=== PATIENT | female | born 1970 | race Caucasian/White ===

== ENCOUNTER 2022-01-12 12:15 | Inpatient (IN) | payer MEDICARE, MEDICAID ==
[~2022-01-12] VITALS: Ht 162.6 cm; Wt 75.8 kg
[2022-01-12] MEDS ORDERED: cefTRIAXone 1GM/50ML D5W 50 ML IV ONE (13:30)
[2022-01-12 13:57] LABS: Urine Bacteria MOD /hpf (None Seen); Urine Blood 1+ /uL (Negative); Urine Budding Yeast MODERATE /hpf (None Seen); Urine Mucus FEW (None Seen); Urine Specific Gravity 1.019 (1.001-1.035); Urine WBC 160 /hpf (0 - 5); Urine WBC Clumps PRESENT /hpf (None Seen)
[2022-01-12 14:02] LABS: Hematocrit 26.5 % (36.0-46.0); Hemoglobin 8.7 g/dL (12.2-16.2); Mean Corpuscular Hemoglobin 28.2 pg (28.0-32.0); Mean Corpuscular Hgb Conc. 32.9 g/dL (32.0-36.0); Mean Corpuscular Volume 85.6 fL (80.0-100.0); Red Blood Cells 3.09 10^6/uL (4.0-5.20); Red Cell Distribution Width 16.2 % (11.8-14.3); White Blood Cell 13.5 10^3/uL (4.4-10.8)
[2022-01-12 14:07] LABS: Band Neutrophils % (manual) 0; Basophils % (manual) 0 (0.0-2.0); Blast Cells 0; Metamyelocytes % 0; Myelocytes % 0; Promyelocytes % 0; Reactive Lymphocytes 0
[2022-01-12 15:03] LABS: Eosinophils % (manual) 1 (0-7); Lymphocytes % (manual) 3 (10.0-50.0); Monocytes % (manual) 4 (0-12)
[2022-01-12 15:09] LABS: Albumin 2.1 g/dL (3.4-5.0); Calcium 8.2 mg/dL (8.5-10.1); Magnesium 2.2 mg/dL (1.6-2.6); Potassium 3.7 mmol/L (3.5-5.1)
[2022-01-12 15:12] LABS: BUN/Creatinine Ratio 3.1
[2022-01-12 15:17] LABS: Bilirubin, Total 0.5 mg/dL (0.2-1.0); Total Protein 6.5 g/dL (6.4-8.2)
[2022-01-12] MEDS ORDERED: ONDANSETRON HCL 4 MG/2 ML VIAL IM ONE (15:30)
[2022-01-12] MEDS ORDERED: DEXTROSE (50%) 50ML SYRG IV PRN (16:15)
[2022-01-12] MEDS ORDERED: NITROGLYCERIN 0.4 MG SL TAB SL PRN (16:15)
[2022-01-12] MEDS ORDERED: DOCUSATE SOD 100 MG CAP PO PRN (16:15)
[2022-01-12] MEDS: InsuLIN REG 1unit/0.01ml Soln (100units/ml) SC SCH ×2 (17:00→23:14)
[2022-01-12] MEDS: ACCU-CHEK COMFORT CURVE STRIP VI SCH ×2 (17:00→23:14)
[2022-01-12] MEDS: PIPERACILLIN-TAZOB 2.25GM 50 ML IV SCH (23:13)
[2022-01-13] MEDS: ONDANSETRON HCL 4 MG/2 ML VIAL IV PRN (01:13)
[2022-01-13 02:48] VITALS: BP 155/112
[2022-01-13 03:44] VITALS: BP 155/112
[2022-01-13] MEDS ORDERED: LACT10PA2 PO (04:05)
[2022-01-13] MEDS ORDERED: FER325T PO (04:10)
[2022-01-13] MEDS ORDERED: ATOR40TA52 PO (04:10)
[2022-01-13] MEDS ORDERED: ASPI1TAB20 PO (04:11)
[2022-01-13] MEDS ORDERED: HYDR-4902 PO (04:12)
[2022-01-13] MEDS ORDERED: NITR0.4S29 SL (04:14)
[2022-01-13] MEDS ORDERED: RANO500T2 PO (04:14)
[2022-01-13] MEDS ORDERED: PANT1INJ3 IV (04:16)
[2022-01-13] MEDS ORDERED: SUCR1TAB22 PO (04:16)
[2022-01-13] MEDS ORDERED: CHOL20007 PO (04:38)
[2022-01-13] MEDS ORDERED: SODIUM CHL 0.9% 1000 ML BAG XX ONE (05:30)
[2022-01-13] MEDS: PIPERACILLIN-TAZOB 2.25GM 50 ML IV SCH ×3 (06:00→21:22)
[2022-01-13 06:11] LABS: Basophils # (auto) 0.1 10 ^3/uL (0-0.2); Hematocrit 22.3 % (36.0-46.0); Monocytes # (auto) 0.9 10 ^3/uL (0-1.3); Red Blood Cells 2.62 10^6/uL (4.0-5.20)
[2022-01-13 06:15] LABS: Basophils % (auto) 0.5 % (0.0-2.0); Eosinophils # (auto) 0.3 10 ^3/uL (0-0.8); Eosinophils % (auto) 1.9 % (0.0-7.0); Hemoglobin 7.6 g/dL (12.2-16.2); Lymphocytes # (auto) 0.4 10 ^3/uL (0.4-5.4); Lymphocytes % (auto) 3.1 % (10.0-50.0); Mean Corpuscular Hgb Conc. 34.1 g/dL (32.0-36.0); Monocytes % (auto) 6.7 % (0.0-12.0); Neutrophils # (auto) 12.3 10 ^3/uL (1.6-8.6); Neutrophils % (auto) 87.8 % (37.0-80.0); Nucleated Red Blood Cells % 0.1 %; Red Cell Distribution Width 15.9 % (11.8-14.3); White Blood Cell 14.1 10^3/uL (4.4-10.8)
[2022-01-13 06:23] LABS: Albumin 1.9 g/dL (3.4-5.0); Calcium 7.6 mg/dL (8.5-10.1); Potassium 3.6 mmol/L (3.5-5.1)
[2022-01-13 06:28] LABS: Bilirubin, Total 0.5 mg/dL (0.2-1.0); Phosphorus 2.7 mg/dL (2.5-4.90)
[2022-01-13] MEDS: ACCU-CHEK COMFORT CURVE STRIP VI SCH ×4 (07:53→21:07)
[2022-01-13] MEDS: InsuLIN REG 1unit/0.01ml Soln (100units/ml) SC SCH ×4 (07:55→21:08)
[2022-01-13] MEDS: FUROSEMIDE 100 MG/10ML VIAL IV SCH ×2 (07:56→18:06)
[2022-01-13 09:00] VITALS: BP 142/81
[2022-01-13] MEDS: METOCLOPRAMIDE HCL 5MG/ml INJ 2ml VIAL IV PRN ×2 (09:15→18:07)
[2022-01-13] MEDS: ENOXAPARIN SOD 30 MG/0.3 ML SYRINGE SC SCH (09:28)
[2022-01-13] MEDS ORDERED: VANCOMYCIN PER PHARMACY 0 MG IV SCH (10:45)
[2022-01-13] MEDS ORDERED: LACTULOSE 20Gm/30ML SOLN PO ONE (11:00)
[2022-01-13] MEDS: PANTOPRAZOLE 40 MG TAB PO SCH ×2 (11:55→21:23)
[2022-01-13] MEDS: SUCRALFATE 1 GM/10 ML ORAL SUSP PO SCH ×4 (11:55→21:23)
[2022-01-13] MEDS ORDERED: VANCOMYCIN 1GM/250ML 250 ML IV ONE (12:30)
[2022-01-13 13:00] VITALS: BP 141/82
[2022-01-13 17:00] VITALS: BP 148/78
[2022-01-13] MEDS ORDERED: EPOETIN ALFA-EPBX 10,000 UNIT/1ML VIAL SC ONE (21:00)
[2022-01-13 23:52] VITALS: BP 147/72
[2022-01-14 05:00] VITALS: BP 142/80
[2022-01-14] MEDS: PIPERACILLIN-TAZOB 2.25GM 50 ML IV SCH ×3 (05:36→21:00)
[2022-01-14] MEDS: FUROSEMIDE 100 MG/10ML VIAL IV SCH ×2 (05:37→17:36)
[2022-01-14] MEDS: ACCU-CHEK COMFORT CURVE STRIP VI SCH ×4 (06:19→21:01)
[2022-01-14] MEDS: SUCRALFATE 1 GM/10 ML ORAL SUSP PO SCH ×4 (06:20→21:02)
[2022-01-14] MEDS: InsuLIN REG 1unit/0.01ml Soln (100units/ml) SC SCH ×4 (06:20→21:02)
[2022-01-14] MEDS: PANTOPRAZOLE 40 MG TAB PO SCH ×2 (08:40→21:01)
[2022-01-14] MEDS: ENOXAPARIN SOD 30 MG/0.3 ML SYRINGE SC SCH (08:40)
[2022-01-14 09:00] VITALS: BP 147/75
[2022-01-14] MEDS ORDERED: MORPHINE SULFATE INJECTION 2 MG/ML SYRG IV PRN ×2 (09:45→10:15)
[2022-01-14] MEDS: METOCLOPRAMIDE HCL 5MG/ml INJ 2ml VIAL IV PRN (10:22)
[2022-01-14 13:00] VITALS: BP 149/81
[2022-01-14] MEDS ORDERED: POLYETHYLENE GLYCOL 17 GM PWDR PO ONE (15:15)
[2022-01-14] MEDS: MORPHINE SULFATE INJECTION 2 MG/ML SYRG IV PRN ×2 (15:20→21:04)
[2022-01-14] MEDS ORDERED: FLUCONAZOLE 200MG/100ML 100 ML IV ONE (15:30)
[2022-01-14 17:00] VITALS: BP 140/81
[2022-01-14] MEDS ORDERED: VANCOMYCIN 500 MG in SODIUM CHL 0.9% 100 ML IV ONE (17:00)
[2022-01-14] MEDS: METOCLOPRAMIDE HCL 5MG/ml INJ 2ml VIAL IV SCH (17:22)
[2022-01-14 22:00] VITALS: BP 152/74
[2022-01-15] MEDS: METOCLOPRAMIDE HCL 5MG/ml INJ 2ml VIAL IV SCH ×4 (00:37→18:00)
[2022-01-15 05:00] VITALS: BP 128/71
[2022-01-15] MEDS: MORPHINE SULFATE INJECTION 2 MG/ML SYRG IV PRN ×6 (05:21→20:37)
[2022-01-15 06:03] LABS: Basophils # (auto) 0.1 10 ^3/uL (0-0.2); Basophils % (auto) 0.6 % (0.0-2.0); Monocytes # (auto) 1.2 10 ^3/uL (0-1.3)
[2022-01-15 06:05] LABS: Eosinophils # (auto) 0.8 10 ^3/uL (0-0.8); Eosinophils % (auto) 4.6 % (0.0-7.0); Hematocrit 23.5 % (36.0-46.0); Hemoglobin 7.8 g/dL (12.2-16.2); Lymphocytes # (auto) 0.9 10 ^3/uL (0.4-5.4); Lymphocytes % (auto) 5.3 % (10.0-50.0); Mean Corpuscular Hemoglobin 28.5 pg (28.0-32.0); Mean Corpuscular Hgb Conc. 33.3 g/dL (32.0-36.0); Mean Corpuscular Volume 85.8 fL (80.0-100.0); Monocytes % (auto) 7.3 % (0.0-12.0); Neutrophils # (auto) 13.6 10 ^3/uL (1.6-8.6); Neutrophils % (auto) 82.2 % (37.0-80.0); Red Blood Cells 2.74 10^6/uL (4.0-5.20); Red Cell Distribution Width 15.8 % (11.8-14.3); White Blood Cell 16.6 10^3/uL (4.4-10.8)
[2022-01-15] MEDS: ACCU-CHEK COMFORT CURVE STRIP VI SCH ×4 (06:17→22:00)
[2022-01-15] MEDS: InsuLIN REG 1unit/0.01ml Soln (100units/ml) SC SCH ×4 (06:18→22:00)
[2022-01-15] MEDS: SUCRALFATE 1 GM/10 ML ORAL SUSP PO SCH ×4 (06:50→21:36)
[2022-01-15] MEDS: PIPERACILLIN-TAZOB 2.25GM 50 ML IV SCH ×3 (06:50→21:38)
[2022-01-15] MEDS: FUROSEMIDE 100 MG/10ML VIAL IV SCH ×2 (06:50→18:34)
[2022-01-15] MEDS ORDERED: SODIUM CHL 0.9% 1000 ML BAG XX ONE (07:00)
[2022-01-15] MEDS: FLUCONAZOLE 200MG/100ML 100 ML IV SCH (09:23)
[2022-01-15] MEDS: POLYETHYLENE GLYCOL 17 GM PWDR PO SCH (09:23)
[2022-01-15] MEDS: ENOXAPARIN SOD 30 MG/0.3 ML SYRINGE SC SCH (09:23)
[2022-01-15] MEDS: PANTOPRAZOLE 40 MG TAB PO SCH ×2 (09:23→21:34)
[2022-01-15] MEDS: Nepro With Carbsteady ButterPecan 8oz Carton PO SCH ×2 (12:00→18:34)
[2022-01-15 17:00] VITALS: BP 101/68
[2022-01-15 18:37] VITALS: BP 133/70
[2022-01-15] MEDS ORDERED: VANCOMYCIN 500 MG in SODIUM CHL 0.9% 100 ML IV ONE (20:00)
[2022-01-15] MEDS ORDERED: EPOETIN ALFA-EPBX 10,000 UNIT/1ML VIAL SC ONE (21:00)
[2022-01-15 22:00] VITALS: BP 143/71
[2022-01-16] VITALS (7 sets, daily range): BP systolic 112–170; BP diastolic 70–85
[2022-01-16] MEDS: METOCLOPRAMIDE HCL 5MG/ml INJ 2ml VIAL IV SCH ×4 (00:19→17:50)
[2022-01-16] MEDS: MORPHINE SULFATE INJECTION 2 MG/ML SYRG IV PRN ×5 (00:52→20:15)
[2022-01-16] MEDS: FUROSEMIDE 100 MG/10ML VIAL IV SCH ×2 (05:44→17:51)
[2022-01-16] MEDS: PIPERACILLIN-TAZOB 2.25GM 50 ML IV SCH ×3 (05:44→22:00)
[2022-01-16] MEDS: InsuLIN REG 1unit/0.01ml Soln (100units/ml) SC SCH ×2 (06:42→12:27)
[2022-01-16] MEDS: ACCU-CHEK COMFORT CURVE STRIP VI SCH ×2 (06:42→12:27)
[2022-01-16] MEDS: SUCRALFATE 1 GM/10 ML ORAL SUSP PO SCH ×4 (06:42→22:56)
[2022-01-16] MEDS: Nepro With Carbsteady ButterPecan 8oz Carton PO SCH ×3 (08:00→17:51)
[2022-01-16] MEDS ORDERED: ADENOSINE 69 MG in GIVE UN-DILUTED 0 ML IV ONE (09:00)
[2022-01-16] MEDS: FLUCONAZOLE 200MG/100ML 100 ML IV SCH (10:13)
[2022-01-16] MEDS: PANTOPRAZOLE 40 MG TAB PO SCH ×2 (10:53→22:56)
[2022-01-16] MEDS: POLYETHYLENE GLYCOL 17 GM PWDR PO SCH (10:53)
[2022-01-16] MEDS: ENOXAPARIN SOD 30 MG/0.3 ML SYRINGE SC SCH (10:53)
[2022-01-16 13:32] LABS: Hepatitis A Ab IgM Negative; Hepatitis B Core IgM Negative; Hepatitis C Antibody Negative (Negative)
[2022-01-17] MEDS: METOCLOPRAMIDE HCL 5MG/ml INJ 2ml VIAL IV SCH ×4 (00:21→17:09)
[2022-01-17] MEDS: MORPHINE SULFATE INJECTION 2 MG/ML SYRG IV PRN ×5 (02:00→23:19)
[2022-01-17 05:00] VITALS: BP 145/72
[2022-01-17 05:40] LABS: Basophils # (auto) 0.1 10 ^3/uL (0-0.2); Eosinophils # (auto) 0.9 10 ^3/uL (0-0.8); Monocytes # (auto) 1.3 10 ^3/uL (0-1.3)
[2022-01-17 05:43] LABS: Basophils % (auto) 1.1 % (0.0-2.0); Eosinophils % (auto) 7.1 % (0.0-7.0); Hemoglobin 7.8 g/dL (12.2-16.2); Lymphocytes # (auto) 0.9 10 ^3/uL (0.4-5.4); Lymphocytes % (auto) 6.9 % (10.0-50.0); Mean Corpuscular Hemoglobin 28.8 pg (28.0-32.0); Mean Corpuscular Hgb Conc. 33.9 g/dL (32.0-36.0); Monocytes % (auto) 10.4 % (0.0-12.0); Neutrophils # (auto) 9.7 10 ^3/uL (1.6-8.6); Neutrophils % (auto) 74.5 % (37.0-80.0)
[2022-01-17] MEDS: PIPERACILLIN-TAZOB 2.25GM 50 ML IV SCH ×3 (05:52→23:17)
[2022-01-17] MEDS: FUROSEMIDE 100 MG/10ML VIAL IV SCH ×2 (05:52→17:09)
[2022-01-17 06:56] LABS: BUN/Creatinine Ratio 3.2; Calcium 8.1 mg/dL (8.5-10.1); Magnesium 2.1 mg/dL (1.6-2.6); Potassium 3.4 mmol/L (3.5-5.1)
[2022-01-17] MEDS ORDERED: SODIUM CHL 0.9% 1000 ML BAG XX ONE (07:00)
[2022-01-17] MEDS: SUCRALFATE 1 GM/10 ML ORAL SUSP PO SCH ×4 (07:58→23:17)
[2022-01-17] MEDS: Nepro With Carbsteady ButterPecan 8oz Carton PO SCH ×3 (07:59→17:55)
[2022-01-17 08:00] VITALS: BP 141/84
[2022-01-17 09:08] VITALS: BP 141/84
[2022-01-17] MEDS: FLUCONAZOLE 200MG/100ML 100 ML IV SCH (09:33)
[2022-01-17] MEDS: POLYETHYLENE GLYCOL 17 GM PWDR PO SCH (09:34)
[2022-01-17] MEDS: ENOXAPARIN SOD 30 MG/0.3 ML SYRINGE SC SCH (09:34)
[2022-01-17] MEDS: PANTOPRAZOLE 40 MG TAB PO SCH ×2 (09:42→23:17)
[2022-01-17 13:00] VITALS: BP 149/85
[2022-01-17] MEDS: POTASSIUM EFFERVESENT TAB 25 MEQ PO ONE ×2 (14:44→14:45)
[2022-01-17] MEDS ORDERED: ALBUMIN 25% 100 ML IV PRN (15:15)
[2022-01-17 16:49] VITALS: BP 165/91
[2022-01-17] MEDS ORDERED: VANCOMYCIN 500 MG in D5W 5% 100 ML IV ONE (20:00)
[2022-01-17] MEDS ORDERED: EPOETIN ALFA-EPBX 4,000 UNIT/ML VIAL SC ONE (21:00)
[2022-01-17 21:33] VITALS: BP 156/85
[2022-01-18] VITALS (14 sets, daily range): BP systolic 101–173; BP diastolic 58–83
[2022-01-18] MEDS: METOCLOPRAMIDE HCL 5MG/ml INJ 2ml VIAL IV SCH ×5 (00:25→23:47)
[2022-01-18] MEDS: MORPHINE SULFATE INJECTION 2 MG/ML SYRG IV PRN ×3 (04:35→22:57)
[2022-01-18] MEDS: PIPERACILLIN-TAZOB 2.25GM 50 ML IV SCH ×3 (06:10→21:34)
[2022-01-18] MEDS: FUROSEMIDE 100 MG/10ML VIAL IV SCH ×2 (06:11→17:42)
[2022-01-18 06:44] LABS: Basophils # (auto) 0.1 10 ^3/uL (0-0.2); Basophils % (auto) 0.9 % (0.0-2.0); Eosinophils # (auto) 0.8 10 ^3/uL (0-0.8); Hematocrit 22.9 % (36.0-46.0); Hemoglobin 7.6 g/dL (12.2-16.2); Lymphocytes # (auto) 1.1 10 ^3/uL (0.4-5.4); Monocytes # (auto) 1.3 10 ^3/uL (0-1.3); Neutrophils # (auto) 8.9 10 ^3/uL (1.6-8.6)
[2022-01-18 06:47] LABS: Eosinophils % (auto) 6.7 % (0.0-7.0); Lymphocytes % (auto) 8.9 % (10.0-50.0); Mean Corpuscular Hemoglobin 28.1 pg (28.0-32.0); Mean Corpuscular Hgb Conc. 33.2 g/dL (32.0-36.0); Mean Corpuscular Volume 84.5 fL (80.0-100.0); Monocytes % (auto) 10.6 % (0.0-12.0); Neutrophils % (auto) 72.9 % (37.0-80.0); Nucleated Red Blood Cells % 0.1 %; Red Blood Cells 2.71 10^6/uL (4.0-5.20); Red Cell Distribution Width 15.7 % (11.8-14.3); White Blood Cell 12.2 10^3/uL (4.4-10.8)
[2022-01-18 06:55] LABS: INR 1.25 (0.9-1.15); Partial Thromboplastin Time 41.3 sec (23.6-33.0)
[2022-01-18] MEDS: SUCRALFATE 1 GM/10 ML ORAL SUSP PO SCH ×4 (06:56→21:34)
[2022-01-18 07:01] LABS: Potassium 3.5 mmol/L (3.5-5.1)
[2022-01-18 07:03] LABS: Magnesium 1.8 mg/dL (1.6-2.6)
[2022-01-18] MEDS: Nepro With Carbsteady ButterPecan 8oz Carton PO SCH ×2 (08:12→11:50)
[2022-01-18] MEDS: PANTOPRAZOLE 40 MG TAB PO SCH ×2 (09:26→21:34)
[2022-01-18] MEDS: FLUCONAZOLE 200MG/100ML 100 ML IV SCH (09:26)
[2022-01-18] MEDS: ENOXAPARIN SOD 30 MG/0.3 ML SYRINGE SC SCH (09:27)
[2022-01-18] MEDS: POLYETHYLENE GLYCOL 17 GM PWDR PO SCH (09:28)
[2022-01-18] MEDS ORDERED: IOHEXOL 350 MG/ML 100ML IJ ONE (13:22)
[2022-01-18] MEDS ORDERED: LIDOCAINE 2%HCL (LOCAL ANESTH.) INJ 10ml MDV ONE (13:22)
[2022-01-18] MEDS ORDERED: ANGIOMAX 250 MG VIAL IV ONE (13:34)
[2022-01-18] MEDS ORDERED: MIDAZOLAM HCL 2MG/2ML 2ml VIAL (1mg/ml) ONE (13:34)
[2022-01-18] MEDS ORDERED: SODIUM CHL 0.9% 0 ML ONE (13:34)
[2022-01-18] MEDS ORDERED: fentaNYL CITRATE 100 MCG/2 ML VL ONE (13:34)
[2022-01-18] MEDS ORDERED: HYDROmorphone HCL 2 MG/ML VL/or syr ONE (14:09)
[2022-01-19 05:00] VITALS: BP 165/78
[2022-01-19] MEDS: METOCLOPRAMIDE HCL 5MG/ml INJ 2ml VIAL IV SCH ×2 (05:44→12:00)
[2022-01-19] MEDS: PIPERACILLIN-TAZOB 2.25GM 50 ML IV SCH ×3 (05:46→22:08)
[2022-01-19] MEDS: SUCRALFATE 1 GM/10 ML ORAL SUSP PO SCH ×3 (05:50→22:08)
[2022-01-19] MEDS: FUROSEMIDE 100 MG/10ML VIAL IV SCH (05:52)
[2022-01-19] MEDS ORDERED: SODIUM CHL 0.9% 1000 ML BAG XX ONE (07:00)
[2022-01-19] MEDS: MORPHINE SULFATE INJECTION 2 MG/ML SYRG IV PRN (07:07)
[2022-01-19 09:00] VITALS: BP 153/80
[2022-01-19 09:19] LABS: Basophils # (auto) 0.1 10 ^3/uL (0-0.2); Eosinophils # (auto) 0.7 10 ^3/uL (0-0.8); Hemoglobin 7.2 g/dL (12.2-16.2); Monocytes # (auto) 1.4 10 ^3/uL (0-1.3); Nucleated Red Blood Cells % 0.1 %
[2022-01-19 09:21] LABS: Basophils % (auto) 0.8 % (0.0-2.0); Eosinophils % (auto) 6.7 % (0.0-7.0); Hematocrit 21.9 % (36.0-46.0); Lymphocytes # (auto) 1.1 10 ^3/uL (0.4-5.4); Lymphocytes % (auto) 9.6 % (10.0-50.0); Mean Corpuscular Volume 84.7 fL (80.0-100.0); Monocytes % (auto) 12.8 % (0.0-12.0); Neutrophils # (auto) 7.7 10 ^3/uL (1.6-8.6); Neutrophils % (auto) 70.1 % (37.0-80.0); Red Blood Cells 2.59 10^6/uL (4.0-5.20); Red Cell Distribution Width 16.1 % (11.8-14.3); White Blood Cell 10.9 10^3/uL (4.4-10.8)
[2022-01-19 09:27] LABS: Calcium 7.9 mg/dL (8.5-10.1); Potassium 3.6 mmol/L (3.5-5.1)
[2022-01-19] MEDS: FLUCONAZOLE 200MG/100ML 100 ML IV SCH (10:00)
[2022-01-19] MEDS: ENOXAPARIN SOD 30 MG/0.3 ML SYRINGE SC SCH (10:00)
[2022-01-19] MEDS: PANTOPRAZOLE 40 MG TAB PO SCH ×2 (10:00→22:08)
[2022-01-19] MEDS: POLYETHYLENE GLYCOL 17 GM PWDR PO SCH (10:00)
[2022-01-19 13:00] VITALS: BP 155/82
[2022-01-19] MEDS ORDERED: MIDAZOLAM HCL 2MG/2ML 2ml VIAL (1mg/ml) IV ONE (13:00)
[2022-01-19] MEDS ORDERED: MIDAZOLAM HCL 2MG/2ML 2ml VIAL (1mg/ml) ONE (13:47)
[2022-01-19] MEDS ORDERED: VANCOMYCIN 500 MG in SODIUM CHL 0.9% 100 ML IV ONE ×2 (16:00→20:15)
[2022-01-19 17:00] VITALS: BP 156/64
[2022-01-19 22:00] VITALS: BP 156/85
[2022-01-20] MEDS: MORPHINE SULFATE INJECTION 2 MG/ML SYRG IV PRN ×3 (00:08→21:44)
[2022-01-20] MEDS: METOCLOPRAMIDE HCL 5MG/ml INJ 2ml VIAL IV SCH ×5 (00:08→23:41)
[2022-01-20 04:52] VITALS: BP 154/76
[2022-01-20] MEDS: FUROSEMIDE 100 MG/10ML VIAL IV SCH ×2 (05:51→18:22)
[2022-01-20] MEDS: SUCRALFATE 1 GM/10 ML ORAL SUSP PO SCH ×4 (05:59→21:22)
[2022-01-20] MEDS: PIPERACILLIN-TAZOB 2.25GM 50 ML IV SCH ×3 (06:02→21:23)
[2022-01-20 08:43] VITALS: BP 154/84
[2022-01-20] MEDS: POLYETHYLENE GLYCOL 17 GM PWDR PO SCH (10:00)
[2022-01-20] MEDS: ENOXAPARIN SOD 30 MG/0.3 ML SYRINGE SC SCH (11:25)
[2022-01-20] MEDS: FLUCONAZOLE 200MG/100ML 100 ML IV SCH (11:26)
[2022-01-20] MEDS: PANTOPRAZOLE 40 MG TAB PO SCH ×2 (11:35→21:22)
[2022-01-20 12:29] VITALS: BP 161/90
[2022-01-20 16:48] VITALS: BP 150/78
[2022-01-20 22:02] VITALS: BP 152/77
[2022-01-21] MEDS: MORPHINE SULFATE INJECTION 2 MG/ML SYRG IV PRN ×3 (04:15→17:27)
[2022-01-21 04:41] VITALS: BP 160/84
[2022-01-21] MEDS: FUROSEMIDE 100 MG/10ML VIAL IV SCH ×2 (06:11→17:26)
[2022-01-21] MEDS: SUCRALFATE 1 GM/10 ML ORAL SUSP PO SCH ×4 (06:12→22:17)
[2022-01-21] MEDS: METOCLOPRAMIDE HCL 5MG/ml INJ 2ml VIAL IV SCH ×3 (06:12→17:26)
[2022-01-21] MEDS: PIPERACILLIN-TAZOB 2.25GM 50 ML IV SCH ×3 (06:15→22:17)
[2022-01-21] MEDS ORDERED: SODIUM CHL 0.9% 1000 ML BAG XX ONE (07:00)
[2022-01-21] MEDS: Nepro With Carbsteady ButterPecan 8oz Carton PO SCH ×6 (08:00→17:26)
[2022-01-21 09:00] VITALS: BP 161/88
[2022-01-21] MEDS: FLUCONAZOLE 200MG/100ML 100 ML IV SCH (10:31)
[2022-01-21] MEDS: POLYETHYLENE GLYCOL 17 GM PWDR PO SCH ×2 (10:31→10:50)
[2022-01-21] MEDS: PANTOPRAZOLE 40 MG TAB PO SCH ×2 (10:31→22:18)
[2022-01-21] MEDS: ENOXAPARIN SOD 30 MG/0.3 ML SYRINGE SC SCH (10:31)
[2022-01-21 13:00] VITALS: BP 151/96
[2022-01-21 17:00] VITALS: BP 152/79
[2022-01-21] MEDS ORDERED: VANCOMYCIN 500 MG in D5W 5% 100 ML IV ONE ×4 (17:30)
[2022-01-21] MEDS ORDERED: EPOETIN ALFA-EPBX 10,000 UNIT/1ML VIAL SC ONE (21:00)
[2022-01-21 21:37] VITALS: BP 151/87
[2022-01-21] MEDS: DOXYCYCLINE 100 MG TAB/CAP PO SCH (22:18)
[2022-01-22] MEDS: METOCLOPRAMIDE HCL 5MG/ml INJ 2ml VIAL IV SCH ×5 (00:29→23:16)
[2022-01-22] MEDS: MORPHINE SULFATE INJECTION 2 MG/ML SYRG IV PRN ×4 (00:30→18:45)
[2022-01-22 04:45] VITALS: BP 165/84
[2022-01-22] MEDS: FUROSEMIDE 100 MG/10ML VIAL IV SCH ×2 (05:42→18:40)
[2022-01-22] MEDS: PIPERACILLIN-TAZOB 2.25GM 50 ML IV SCH ×3 (05:44→22:04)
[2022-01-22] MEDS: SUCRALFATE 1 GM/10 ML ORAL SUSP PO SCH ×4 (05:45→22:05)
[2022-01-22 09:00] VITALS: BP 175/90
[2022-01-22] MEDS: DOXYCYCLINE 100 MG TAB/CAP PO SCH ×2 (09:41→22:06)
[2022-01-22] MEDS: FLUCONAZOLE 200MG/100ML 100 ML IV SCH (09:41)
[2022-01-22] MEDS: PANTOPRAZOLE 40 MG TAB PO SCH ×2 (09:41→22:05)
[2022-01-22] MEDS: Nepro With Carbsteady ButterPecan 8oz Carton PO SCH ×3 (09:46→18:00)
[2022-01-22] MEDS: ENOXAPARIN SOD 30 MG/0.3 ML SYRINGE SC SCH (10:55)
[2022-01-22] MEDS ORDERED: cloNIDine HCL 0.1 MG TAB PO PRN (14:30)
[2022-01-22 22:00] VITALS: BP 141/90
[2022-01-23] MEDS: MORPHINE SULFATE INJECTION 2 MG/ML SYRG IV PRN ×3 (00:50→22:14)
[2022-01-23 05:00] VITALS: BP 150/85
[2022-01-23] MEDS: FUROSEMIDE 100 MG/10ML VIAL IV SCH ×2 (05:49→17:25)
[2022-01-23] MEDS: METOCLOPRAMIDE HCL 5MG/ml INJ 2ml VIAL IV SCH ×3 (05:49→17:26)
[2022-01-23] MEDS: PIPERACILLIN-TAZOB 2.25GM 50 ML IV SCH ×3 (05:49→22:09)
[2022-01-23 05:55] LABS: Basophils # (auto) 0.1 10 ^3/uL (0-0.2); Basophils % (auto) 1.3 % (0.0-2.0); Eosinophils # (auto) 0.6 10 ^3/uL (0-0.8); Eosinophils % (auto) 7.4 % (0.0-7.0); Hemoglobin 7.3 g/dL (12.2-16.2); Lymphocytes # (auto) 0.9 10 ^3/uL (0.4-5.4); Lymphocytes % (auto) 10.5 % (10.0-50.0); Mean Corpuscular Hemoglobin 28.4 pg (28.0-32.0); Mean Corpuscular Hgb Conc. 33.1 g/dL (32.0-36.0); Mean Corpuscular Volume 85.9 fL (80.0-100.0); Monocytes # (auto) 0.9 10 ^3/uL (0-1.3); Monocytes % (auto) 10.3 % (0.0-12.0); Neutrophils # (auto) 5.9 10 ^3/uL (1.6-8.6); Neutrophils % (auto) 70.5 % (37.0-80.0); Red Blood Cells 2.56 10^6/uL (4.0-5.20); White Blood Cell 8.3 10^3/uL (4.4-10.8)
[2022-01-23 06:00] LABS: BUN/Creatinine Ratio 1.6; Calcium 7.9 mg/dL (8.5-10.1); Potassium 3.7 mmol/L (3.5-5.1)
[2022-01-23] MEDS: SUCRALFATE 1 GM/10 ML ORAL SUSP PO SCH ×4 (06:39→22:09)
[2022-01-23] MEDS: Nepro With Carbsteady ButterPecan 8oz Carton PO SCH ×3 (08:00→17:22)
[2022-01-23 09:00] VITALS: BP 155/83
[2022-01-23] MEDS: POLYETHYLENE GLYCOL 17 GM PWDR PO SCH (10:00)
[2022-01-23] MEDS: PANTOPRAZOLE 40 MG TAB PO SCH ×2 (10:30→22:10)
[2022-01-23] MEDS: ENOXAPARIN SOD 30 MG/0.3 ML SYRINGE SC SCH (10:30)
[2022-01-23] MEDS: DOXYCYCLINE 100 MG TAB/CAP PO SCH ×2 (10:31→22:10)
[2022-01-23] MEDS: FLUCONAZOLE 200MG/100ML 100 ML IV SCH (10:32)
[2022-01-23 13:00] VITALS: BP 164/84
[2022-01-23] MEDS ORDERED: ceFAZolin 1GM/50ML 100 ML IV ONE (13:53)
[2022-01-23] MEDS ORDERED: fentaNYL CITRATE 100 MCG/2 ML VL ONE (14:25)
[2022-01-23] MEDS ORDERED: MIDAZOLAM HCL 2MG/2ML 2ml VIAL (1mg/ml) ONE (14:25)
[2022-01-23] MEDS ORDERED: LIDOCAINE 2% (LOCAL ANESTH.) PF 5ml SDV ONE (14:27)
[2022-01-23] MEDS ORDERED: ePHEDrine SULFATE 50 MG/ML AMP ONE (14:27)
[2022-01-23] MEDS ORDERED: GLYCOPYRROLATE 0.2 MG/ML 1ML VIAL ONE (14:27)
[2022-01-23] MEDS ORDERED: PHENYLEPHRINE HCL 10 MG/ML VL ONE (14:27)
[2022-01-23] MEDS ORDERED: DexAMETHasone SOD PHOS 10MG/1ML VIAL INJ ONE (14:27)
[2022-01-23] MEDS ORDERED: PROPOFOL 10 MG/ML 20 ML IV ONE (14:27)
[2022-01-23] MEDS: BUPIVACAINE 0.25% INJ 50ML VIAL ONE ×2 (14:54→15:30)
[2022-01-23] MEDS ORDERED: HYDROmorphone HCL 2 MG/ML VL/or syr ONE ×2 (14:57→16:33)
[2022-01-23] MEDS ORDERED: SUGAMMADEX 200mg/2ml Vial (100MG/ML) IV ONE (15:36)
[2022-01-23] MEDS ORDERED: ACCU-CHEK COMFORT CURVE STRIP VI ONE (16:15)
[2022-01-23] MEDS ORDERED: HYDROmorphone HCL 2 MG/ML VL/or syr IV PRN (16:15)
[2022-01-23] MEDS ORDERED: ONDANSETRON HCL 4 MG/2 ML VIAL IV PRN (16:15)
[2022-01-23 17:00] VITALS: BP 147/84
[2022-01-23 22:00] VITALS: BP 149/85
[2022-01-23] MEDS: ONDANSETRON HCL 4 MG/2 ML VIAL IV PRN (22:54)
[2022-01-24] MEDS: METOCLOPRAMIDE HCL 5MG/ml INJ 2ml VIAL IV SCH ×4 (00:28→17:52)
[2022-01-24 05:00] VITALS: BP 140/80
[2022-01-24] MEDS: FUROSEMIDE 100 MG/10ML VIAL IV SCH ×2 (05:54→17:52)
[2022-01-24] MEDS: PIPERACILLIN-TAZOB 2.25GM 50 ML IV SCH ×2 (05:54→15:15)
[2022-01-24 06:01] LABS: Hematocrit 23.6 % (36.0-46.0); Hemoglobin 7.7 g/dL (12.2-16.2)
[2022-01-24] MEDS: SUCRALFATE 1 GM/10 ML ORAL SUSP PO SCH ×3 (06:35→17:00)
[2022-01-24] MEDS ORDERED: SODIUM CHL 0.9% 1000 ML BAG XX ONE (07:00)
[2022-01-24] MEDS: Nepro With Carbsteady ButterPecan 8oz Carton PO SCH ×3 (08:00→17:53)
[2022-01-24] MEDS: ONDANSETRON HCL 4 MG/2 ML VIAL IV PRN ×2 (08:11→15:09)
[2022-01-24] MEDS: MORPHINE SULFATE INJECTION 2 MG/ML SYRG IV PRN ×3 (08:13→17:08)
[2022-01-24 09:10] VITALS: BP 141/76
[2022-01-24] MEDS: POLYETHYLENE GLYCOL 17 GM PWDR PO SCH (10:00)
[2022-01-24] MEDS: PANTOPRAZOLE 40 MG TAB PO SCH (12:26)
[2022-01-24] MEDS: DOXYCYCLINE 100 MG TAB/CAP PO SCH (12:26)
[2022-01-24] MEDS: ENOXAPARIN SOD 30 MG/0.3 ML SYRINGE SC SCH (12:30)
[2022-01-24] MEDS: FLUCONAZOLE 200MG/100ML 100 ML IV SCH (12:30)
[2022-01-24 13:00] VITALS: BP 157/90
[2022-01-24] MEDS ORDERED: VANCOMYCIN 500 MG in D5W 5% 100 ML IV ONE (16:00)
[2022-01-24 16:45] VITALS: BP 155/74
[2022-01-24 17:49] VITALS: BP 145/81
[2022-01-24 17:50] VITALS: BP 149/67
[2022-01-24] MEDS ORDERED: EPOETIN ALFA-EPBX 10,000 UNIT/1ML VIAL SC ONE (21:00)
[2022-01-25] MEDS ORDERED: PERCOT PO (22:58)
== END 2022-01-24 18:50 | disposition home or self-care (01) | DRG 853 ==
LOC: EDBD 12:15 → ER 12:15 → TELE 16:10 → TELE-WESTW 21:04
PROVIDERS: ADMIT Internal Medicine; ATTEND Internal Medicine
PROC: 5A1D70Z Performance of Urinary Filtration, Intermittent, Less than 6 Hours Per Day (ICD-10-PCS; 2022-01-13)
PROC: 5A1D70Z Performance of Urinary Filtration, Intermittent, Less than 6 Hours Per Day (ICD-10-PCS; 2022-01-15)
PROC: 5A1D70Z Performance of Urinary Filtration, Intermittent, Less than 6 Hours Per Day (ICD-10-PCS; 2022-01-17)
PROC: 4A023N7 Measurement of Cardiac Sampling and Pressure, Left Heart, Percutaneous Approach (ICD-10-PCS; 2022-01-18)
PROC: B211YZZ Fluoroscopy of Multiple Coronary Arteries using Other Contrast (ICD-10-PCS; 2022-01-18)
PROC: B215YZZ Fluoroscopy of Left Heart using Other Contrast (ICD-10-PCS; 2022-01-18)
PROC: 4A033BC Measurement of Arterial Pressure, Coronary, Percutaneous Approach (ICD-10-PCS; 2022-01-18)
PROC: B41CYZZ Fluoroscopy of Pelvic Arteries using Other Contrast (ICD-10-PCS; 2022-01-18)
PROC: B410YZZ Fluoroscopy of Abdominal Aorta using Other Contrast (ICD-10-PCS; 2022-01-18)
PROC: 5A1D70Z Performance of Urinary Filtration, Intermittent, Less than 6 Hours Per Day (ICD-10-PCS; 2022-01-19)
PROC: B24BZZ4 Ultrasonography of Heart with Aorta, Transesophageal (ICD-10-PCS; 2022-01-19)
PROC: 5A1D70Z Performance of Urinary Filtration, Intermittent, Less than 6 Hours Per Day (ICD-10-PCS; 2022-01-21)
PROC: 0WPG43Z Removal of Infusion Device from Peritoneal Cavity, Percutaneous Endoscopic Approach (ICD-10-PCS; principal; 2022-01-23 14:19)
PROC: 5A1D70Z Performance of Urinary Filtration, Intermittent, Less than 6 Hours Per Day (ICD-10-PCS; 2022-01-24)
DX: A41.9 Sepsis, unspecified organism (principal); G93.41 Metabolic encephalopathy; N18.6 End stage renal disease; E43 Unspecified severe protein-calorie malnutrition; K65.9 Peritonitis, unspecified; J18.9 Pneumonia, unspecified organism; I21.4 Non-ST elevation (NSTEMI) myocardial infarction; N39.0 Urinary tract infection, site not specified; I12.0 Hypertensive chronic kidney disease with stage 5 chronic kidney disease or end stage renal disease; J96.10 Chronic respiratory failure, unspecified whether with hypoxia or hypercapnia; K92.2 Gastrointestinal hemorrhage, unspecified; T85.611A Breakdown (mechanical) of intraperitoneal dialysis catheter, initial encounter; T85.71XA Infection and inflammatory reaction due to peritoneal dialysis catheter, initial encounter; D63.8 Anemia in other chronic diseases classified elsewhere; E11.22 Type 2 diabetes mellitus with diabetic chronic kidney disease; E11.51 Type 2 diabetes mellitus with diabetic peripheral angiopathy without gangrene; E66.01 Morbid (severe) obesity due to excess calories; E87.6 Hypokalemia; K59.00 Constipation, unspecified; Y83.8 Other surgical procedures as the cause of abnormal reaction of the patient, or of later complication, without mention of misadventure at the time of the procedure; R10.829 Rebound abdominal tenderness, unspecified site; Z99.2 Dependence on renal dialysis; Z20.822 Contact with and (suspected) exposure to COVID-19; Y81.2 Prosthetic and other implants, materials and accessory general- and plastic-surgery devices associated with adverse incidents; I08.1 Rheumatic disorders of both mitral and tricuspid valves; E87.70 Fluid overload, unspecified; K31.84 Gastroparesis; E11.43 Type 2 diabetes mellitus with diabetic autonomic (poly)neuropathy; Z68.31 Body mass index [BMI] 31.0-31.9, adult; Z90.49 Acquired absence of other specified parts of digestive tract; Z91.15 Patient's noncompliance with renal dialysis; Z74.01 Bed confinement status; Z95.810 Presence of automatic (implantable) cardiac defibrillator
CPT/HCPCS: 36415; 70450; 71045; 72192; 74150; 75716; 75726; 80048; 80053; 80074; 80202; 81001; 82962; 83036; 83605; 83735; 83880; 84100; 84132; 84484; 85007; 85014; 85018; 85025; 85027; 85610; 85730; 86850; 86900; 86901; 87040; 87070; 87086; 87205; 87340; 90935; 93005; 93306; 93312; 93458; 93571; 96365; 96372; 96375; 97110; 97163; 97530; 99152; 99153; 99291; G0378; J0153; J0690; J0696; J1100; J1450; J1642; J2001; J2250; J2405; J2543; J2704; J3490; J7060

== ENCOUNTER 2022-01-25 18:31 | Emergency (ER) | payer MEDICARE, MEDICAID ==
[~2022-01-25] VITALS: Ht 162.6 cm; Wt 72.6 kg
[~2022-01-25 18:31] MED LIST: ASPI1TAB20 PO; ATOR40TA52 PO; CHOL20007 PO; FER325T PO; HYDR-4902 PO; LACT10PA2 PO; NITR0.4S29 SL; PANT1INJ3 IV; RANO500T2 PO; SUCR1TAB22 PO
[2022-01-25] MEDS ORDERED: HYDROcodone-ACET 5/325MG TAB PO ONE (19:45)
[2022-01-25] MEDS ORDERED: OXYCODONE W/ ACETAMINOPHEN 5/325MG TABLET PO ONE ×2 (20:15)
[2022-01-25 20:25] LABS: Basophils # (auto) 0 10 ^3/uL (0-0.2); Eosinophils # (auto) 0.1 10 ^3/uL (0-0.8); Hematocrit 21.3 % (36.0-46.0); Hemoglobin 7.1 g/dL (12.2-16.2); Lymphocytes # (auto) 0.7 10 ^3/uL (0.4-5.4); White Blood Cell 9.9 10^3/uL (4.4-10.8)
[2022-01-25 20:26] LABS: Basophils % (auto) 0.3 % (0.0-2.0); Eosinophils % (auto) 1.1 % (0.0-7.0); Lymphocytes % (auto) 6.9 % (10.0-50.0); Mean Corpuscular Hemoglobin 27.9 pg (28.0-32.0); Mean Corpuscular Hgb Conc. 33.1 g/dL (32.0-36.0); Mean Corpuscular Volume 84.3 fL (80.0-100.0); Monocytes # (auto) 0.7 10 ^3/uL (0-1.3); Monocytes % (auto) 7.3 % (0.0-12.0); Neutrophils # (auto) 8.4 10 ^3/uL (1.6-8.6); Neutrophils % (auto) 84.4 % (37.0-80.0); Red Blood Cells 2.53 10^6/uL (4.0-5.20); Red Cell Distribution Width 17.4 % (11.8-14.3)
[2022-01-25 20:40] LABS: Albumin 1.8 g/dL (3.4-5.0); Anion Gap 5 (5-15); Blood Urea Nitrogen 13 mg/dL (7-18); Calcium 8.3 mg/dL (8.5-10.1); Carbon Dioxide 31 mmol/L (21-32); Chloride 100 mmol/L (98-107); Glucose 137 mg/dL (74-106); Potassium 3.5 mmol/L (3.5-5.1); Sodium 136 mmol/L (136-145)
[2022-01-25 20:44] LABS: Alanine Aminotransferase < 6 U/L (13-56); Alkaline Phosphatase 164 U/L (45-117); Aspartate Aminotransferase 14 U/L (15-37); BUN/Creatinine Ratio 3.7; Bilirubin, Total 0.4 mg/dL (0.2-1.0); GFR African American 18 mL/min; GFR Non-African American 15 mL/min; Total Protein 6.3 g/dL (6.4-8.2)
[2022-01-25] MEDS ORDERED: PERCOT PO (22:58)
[2022-01-26] VITALS: BP 164/91
== END 2022-01-26 01:18 | disposition home or self-care (01) ==
LOC: ER 18:31
DX: E11.22 Type 2 diabetes mellitus with diabetic chronic kidney disease (principal); I12.0 Hypertensive chronic kidney disease with stage 5 chronic kidney disease or end stage renal disease; N18.6 End stage renal disease
CPT/HCPCS: 36415; 80053; 85025